=== PATIENT | male | born 1945 | race Caucasian/White ===

== ENCOUNTER 2016-10-06 09:39 | Inpatient (IN) ==
--- NOTE | 2016-10-05 08:46 | EKG Report ---
Test Performed on : 10/05/2016 08:35:56 AM Test Reason : PAT Blood Pressure : / mmHG Vent. Rate : 058 BPM Atrial Rate : 058 BPM P-R Int : 166 ms QRS Dur : 110 ms QT Int : 440 ms P-R-T Axes : 041 -06 017 degrees QTc Int : 431 ms Sinus bradycardia. Incomplete right bundle branch block Borderline ECG When compared with ECG of 12-MAR-2007 07:24, Incomplete right bundle branch block is now present Confirmed by Ron ARMANDO, Alejandro Gutierrez ([id number]) on 10/05/2016 6:52:08 PM
[2016-10-05 08:50] LABS: HEMOGLOBIN 16.1 g/dL (14.0-18.0); MCH 30.2 PG (27-31); MCHC 32.9 g/dL (33-37); MCV 91.9 FL (81-99); MPV 9.7 FL (7.4-10.4); RBC 5.33 XMIL (4.7-6.1)
[2016-10-05 09:05] LABS: CALCIUM 10.5 mg/dL (8.8-10.2); POTASSIUM 4.8 mmol/L (3.5-5.1)
[2016-10-05 09:08] LABS: ALBUMIN 4.1 g/dL (3.5-5.0); DIRECT BILIRUBIN 0.2 mg/dL (0.00-0.20); TOTAL BILIRUBIN 0.64 mg/dL (0.20-1.00); TOTAL PROTEIN 7.1 g/dL (6.3-8.3)
[2016-10-05 09:12] LABS: PROTIME 10.5 Seconds (9.2-11.7); PTT 25.9 Seconds (22.0-36.0)
[2016-10-06] MEDS ORDERED: PEPCID ONE (10:12)
[2016-10-06] MEDS ORDERED: LR 1,000 ML ONE ×3 (10:13→15:11)
[2016-10-06] MEDS ORDERED: REGLAN ONE (10:13)
[2016-10-06] MEDS ORDERED: KEFZOL 2 GM/D5W 50 ML ONE (10:13)
[2016-10-06] MEDS ORDERED: MARCAINE 0.25% PF/EPI 1:200,000 ONE (10:51)
[2016-10-06] MEDS ORDERED: SODIUM CHLORIDE 0.9% ONE (10:51)
[2016-10-06] MEDS ORDERED: FENTANYL ONE (11:10)
[2016-10-06] MEDS ORDERED: DIPRIVAN 1% ONE (11:10)
[2016-10-06] MEDS: DILAUDID ONE ×3 (14:14→14:41)
[2016-10-06] MEDS ORDERED: ZOFRAN ONE (14:17)
[2016-10-06] MEDS ORDERED: NORCURON ONE (14:17)
[2016-10-06] MEDS ORDERED: NEOSTIGMINE ONE (14:17)
[2016-10-06] MEDS ORDERED: LR 2,000 ML ONE (14:18)
[2016-10-06] MEDS ORDERED: ROBINUL ONE (14:18)
[2016-10-06] MEDS ORDERED: DECADRON ONE (14:18)
[2016-10-06] MEDS ORDERED: XYLOCAINE-MPF 2% ONE (14:18)
[2016-10-06] MEDS ORDERED: QUELICIN (DOSE) ONE (14:18)
[2016-10-06] MEDS ORDERED: DILAUDID PCA VIAL ONE (15:10)
[2016-10-06] MEDS ORDERED: OFIRMEV 1000 MG/ISOTONIC SOLN 100 ML ONE (15:10)
[2016-10-06] MEDS ORDERED: NARCAN IV PRN (15:42)
[2016-10-06] MEDS ORDERED: DILAUDID PCA VIAL IV PRN (15:42)
[2016-10-06] MEDS ORDERED: ZOFRAN IV PRN ×2 (15:42→15:47)
[2016-10-06] MEDS ORDERED: NARCAN 0.4 MG in LR 1,000 ML IV PRN (15:42)
[2016-10-06] MEDS: LR 1,000 ML IV SCH ×3 (15:45→22:19)
[2016-10-06] MEDS ORDERED: ULTRAM PO PRN (15:47)
--- NOTE | 2016-10-06 16:17 | OPERATIVE NOTE ---
PROCEDURE DATE: 10/06/2016 PREOPERATIVE DIAGNOSES: 1. Symptomatic cholelithiasis. 2. Umbilical hernia. POSTOPERATIVE DIAGNOSES: 1. Gallbladder adenocarcinoma. 2. Cholelithiasis. 3. Umbilical hernia. PROCEDURE PERFORMED: 1. Laparoscopic converted to open segment 5 liver lesion wedge resection. 2. Biopsy of posterior segment 5, junction of segment 4 liver lesion. 3. Biopsy of gallbladder. 4. Umbilical hernia repair. COMPLICATIONS: None. ESTIMATED BLOOD LOSS: 250 mL. DRAINS: Manny drain in the gallbladder fossa. OPERATIVE INDICATIONS: This 70-year-old male with a history of coronary artery disease presented with a several-week to month history of colicky right upper quadrant pain and nausea. Ultrasound obtained a week prior to surgery showed stones, but no evidence of cholecystitis , no evidence of masses. LFTs were mildly abnormal with elevation of alkaline phosphatase, but bilirubin was normal. Cholecystectomy was indicated. OPERATIVE FINDINGS: There were dense omental adhesions to the gallbladder fossa and the surrounding liver. It was very hemorrhagic. The gallbladder was firm. Upon opening, it was evident that there was a large tumor extending into segment 5 and segment 4 of the liver. The gallbladder was completely replaced with tumor. There were some stones within this, but for the most part the gallbladder was all tumor. This was closely adherent to the portal structures on the distal gallbladder. There was a small nodule in segment 2 of the liver and a small nodule in segment 8 of the liver; however, these were within the liver parenchyma and not visible, and not readily biopsiable. There was no evidence of peritoneal disease. OPERATIVE NOTE: Risks, benefits, and alternatives were discussed with the patient and he consented to the procedure. He was seen in the preoperative area and surgery to be performed was confirmed. He was taken to the operating room, placed in supine position, and general anesthesia was induced without complication. All bony prominences were padded. Preincisional antibiotics were administered. Abdomen was prepped with chlorhexidine solution after his hair was removed with clippers, draped in usual fashion. After time-out was performed between nursing, surgical, and anesthesia staff, periumbilical block was performed with local anesthetic. We then everted the skin overlying the umbilical hernia and dissected the hernia contents free, and excised this and entered the abdomen through the hernia defect. We placed a 12 mm Abimael trocar. This dissection did require significantly more effort than the usual entry into the abdomen laparoscopically. Placed the 12 mm Abimael trocar, insufflated the abdomen to 15 mmHg, and inspected the abdomen. There was no evidence of injury and there was no evidence of other abnormal pathology. At this point, we placed 3 other trocars, 1 in the epigastrium, 1 in the midclavicular line, 1 off the costal margin, and 1 more laterally after infiltration of the peritoneum. At this point, we realized the gallbladder was significantly inflamed and attempts to grasp it were difficult. This initially was felt to be secondary to impacted stones, given that it was very hard and very friable. Ultimately, we dissected down omental adhesions. It took greater than an hour to expose the gallbladder laparoscopically. We used a corkscrew retractor device to retract the gallbladder cephalad; however, it became apparent that the gallbladder was significantly abnormal, very hard, and dissection was difficult. Anatomy was significantly distorted. As such, at this point, we still felt this was related to severe chronic cholecystitis with impacted gallstones, as there was no obvious tumor noted at this time. So we converted to an open procedure, converting his 3 trocar sites to a subcostal incision, placed a Bookwalter retractor, and retracted and exposed the liver, pulling it out of the posterior recess. It then became evident that what was felt to be perigallbladder inflammation and adhesions was, in fact, tumor. We performed a wedge biopsy using electrocautery of the segment 5 lesion. We then attempted to perform a cholecystectomy, but it was evident that this was completely encased in tumor and upon palpation of the liver there was a large tumor extending intrahepatically in segment 4 of the liver. A small nodule was noted in segment 2, was not visible , but it felt firm, and there was another palpable nodule in segment 8 that was small and firm, but again not visible. We sent the segment 5 biopsy off for frozen section and confirmed adenocarcinoma here consistent with a gallbladder etiology, locally advanced. Given the locally advanced nature and the likelihood of requiring a formal right hepatectomy or trisegmentectomy to completely excise the gallbladder and associated tumor, we elected to abort this and formally stage the patient. We placed a Manny drain in the gallbladder fossa and obtained hemostasis, irrigated the abdomen, removed all our laps, and secured the drain with a 2-0 nylon suture. We closed the posterior fascia with a #1 PDS and the anterior fascia with a #1 PDS, irrigated the superficial wound, and closed the skin with clips. During the retraction of the gallbladder, we also placed a midline 5 mm trocar to help facilitate retraction. We closed the umbilical incision, the hernia defect, with interrupted 0 Vicryl sutures and closed the skin with 4-0 Monocryl here, applied a pressure dressing, gauze and Medipore tape dressing. Overall, he tolerated the procedure well. Discussed with the family the unexpected diagnosis. Will plan to admit him to my service tonight and stage him formally over the next couple of days or as an outpatient. All sponge, instrument, and needle counts were correct. MTDD
[2016-10-06] MEDS: PERIDEX MT SCH (20:28)
[2016-10-06] MEDS: ZYLOPRIM PO SCH (20:28)
[2016-10-06] MEDS: OFIRMEV 1000 MG/ISOTONIC SOLN 100 ML IV SCH (22:19)
[2016-10-07] MEDS: OFIRMEV 1000 MG/ISOTONIC SOLN 100 ML IV SCH ×6 (03:55→23:25)
[2016-10-07] MEDS: PRILOSEC PO SCH ×2 (03:55→06:47)
[2016-10-07] MEDS: LR 1,000 ML IV SCH ×3 (06:47→15:06)
[2016-10-07] MEDS: PERIDEX MT SCH ×2 (08:28→20:54)
[2016-10-07] MEDS: FLOMAX PO SCH (08:30)
[2016-10-07] MEDS: IMDUR PO SCH (08:30)
[2016-10-07] MEDS: ASPIRIN PO SCH (08:30)
[2016-10-07] MEDS: LIPITOR PO SCH (08:30)
[2016-10-07] MEDS: ZYLOPRIM PO SCH ×2 (08:30→20:54)
[2016-10-07] MEDS: TOPROL XL PO SCH (08:30)
[2016-10-07] MEDS: SINGULAIR PO SCH (08:30)
[2016-10-07] MEDS: FLONASE NAS SCH (08:30)
[2016-10-07 09:59] LABS: MANUAL DIFF NEEDED? NO
[2016-10-07 10:03] LABS: BASO% 0.1 % (0.0-0.8); HEMATOCRIT 43.7 % (42.0-52.0); HEMOGLOBIN 14.5 g/dL (14.0-18.0); IMM GRAN# 0.04 X1000 (0.0-0.04); IMM GRAN% 0.2 % (0.0-0.5); LYMPH# 2.19 X1000 (1.2-3.4); LYMPH% 11.6 % (20.5-51.1); MCH 30.6 PG (27-31); MCHC 33.2 g/dL (33-37); MCV 92.2 FL (81-99); MONO# 1.45 X1000 (0.11-0.59); MONO% 7.7 % (1.7-9.3); MPV 10.1 FL (7.4-10.4); NEUT% 80.4 % (42.2-75.2); PLT 257 X1000 (130-400); RBC 4.74 XMIL (4.7-6.1)
[2016-10-07 10:55] LABS: ALBUMIN 3.5 g/dL (3.5-5.0); CALCIUM 9.4 mg/dL (8.8-10.2); POTASSIUM 4.4 mmol/L (3.5-5.1); TOTAL BILIRUBIN 0.55 mg/dL (0.20-1.00); TOTAL PROTEIN 6.1 g/dL (6.3-8.3)
--- NOTE | 2016-10-07 13:24 | PROGRESS NOTE ---
DATE: 10/07/2016 SUBJECTIVE: He feels better. Pain has been reasonably controlled. No nausea. Some difficulty voiding overnight. Had an in-and-out cath, but it seems to be improved this morning. The postvoid residual is pretty low this morning. PHYSICAL EXAMINATION: No fevers. Heart rate 66, blood pressure 141/61, oxygen saturation 95% on room air. General: He is alert. There is no scleral icterus. Dressings clean, dry, and intact. ZACKERY drain serosanguineous. LABORATORY DATA: White count 18; expected postop white count. Hematocrit 43, platelets are 257. Creatinine is 1.3. LFTs mildly elevated. As expected, transaminases and alkaline phosphatase. ASSESSMENT AND PLAN: This is a 71-year-old male who presented for elective cholecystectomy for symptomatic stones and was found to have locally aggressive, invasive, and advanced gallbladder cancer. He has got a drain. We will gradually advance his diet today. Monitor him for ongoing urinary retention. We started Flomax. We will back his fluids down as he is tolerating clear liquids. Keep him out of bed today. Will start prophylactic Lovenox. Continue to monitor. Ultimately, and I discussed this with the patient, he will need staging CT scan to plan for potential further hepatic resection, but we will allow him to recover from this in the mean time.
[2016-10-07] MEDS: LOVENOX SUBQ SCH (16:18)
[2016-10-08] MEDS: OFIRMEV 1000 MG/ISOTONIC SOLN 100 ML IV SCH ×5 (03:37→22:28)
[2016-10-08] MEDS: LR 1,000 ML IV SCH (05:27)
[2016-10-08] MEDS: PRILOSEC PO SCH ×2 (05:35→07:52)
[2016-10-08] MEDS: PERIDEX MT SCH ×2 (10:00→20:12)
[2016-10-08] MEDS: LIPITOR PO SCH (10:01)
[2016-10-08] MEDS: IMDUR PO SCH (10:02)
[2016-10-08] MEDS: ZYLOPRIM PO SCH ×2 (10:03→20:11)
[2016-10-08] MEDS: SINGULAIR PO SCH (10:03)
[2016-10-08] MEDS: TOPROL XL PO SCH (10:04)
[2016-10-08] MEDS: ASPIRIN PO SCH (10:04)
[2016-10-08] MEDS: FLOMAX PO SCH (10:04)
[2016-10-08] MEDS: FLONASE NAS SCH (10:05)
[2016-10-08] MEDS: LOVENOX SUBQ SCH (12:54)
[2016-10-08] MEDS ORDERED: OXY IR PO PRN (13:11)
[2016-10-08] MEDS ORDERED: NEXIUM PO ONE (13:13)
--- NOTE | 2016-10-08 13:32 | PROGRESS NOTE ---
DATE: 10/08/2016 SUBJECTIVE: More pain today, but he is voiding without difficulty, tolerating a regular diet. He did require IV pain medicine overnight. OBJECTIVE: Vital Signs: Afebrile. No tachycardia. Blood pressure is normal. His oxygen saturation is 95% on room air. General: He is alert. Abdomen: ZACKERY drain serosanguineous and dressings were all clean, dry, and intact. LABORATORY DATA: Nothing new today. ASSESSMENT AND PLAN: A 71-year-old male who presented for laparoscopic cholecystectomy, converted to open, and found to have locally advanced gallbladder cancer. He is doing well. Pain control is his main issue right now. He is still requiring patient-controlled analgesia. He is having bowel function and tolerating a diet. We will work on his pain control today and work towards discharge in the next couple of days. cc: Gertrude Siddiqi MD
[2016-10-09] MEDS: PRILOSEC PO SCH (07:00)
[2016-10-09] MEDS: SINGULAIR PO SCH (09:00)
[2016-10-09] MEDS: FLOMAX PO SCH (09:00)
[2016-10-09] MEDS: ZYLOPRIM PO SCH ×2 (09:00→22:00)
[2016-10-09] MEDS: PERIDEX MT SCH ×2 (09:00→22:00)
[2016-10-09] MEDS: LOVENOX SUBQ SCH (09:00)
[2016-10-09] MEDS: NEXIUM PO SCH (09:00)
[2016-10-09] MEDS: TOPROL XL PO SCH (09:00)
[2016-10-09] MEDS: FLONASE NAS SCH (09:00)
[2016-10-09] MEDS: LIPITOR PO SCH (09:00)
[2016-10-09] MEDS: IMDUR PO SCH (09:10)
[2016-10-09] MEDS: ASPIRIN PO SCH (09:20)
[2016-10-09] MEDS: OFIRMEV 1000 MG/ISOTONIC SOLN 100 ML IV SCH ×3 (10:00→22:00)
--- NOTE | 2016-10-09 10:06 | PROGRESS NOTE ---
DATE: 10/09/2016 SUBJECTIVE: Patient doing okay. He is feeling bloated. He is tolerating a regular diet. OBJECTIVE: Vital Signs: Patient is currently afebrile. His vital signs have been stable. General: No acute distress. Cardiovascular: Regular rate and rhythm. Lungs: Grossly clear. Abdomen: Protuberant but soft. Incision healing well. ZACKERY drain in place with serosanguineous output. LABORATORY: None currently. ASSESSMENT AND PLAN: A 71-year-old male status post laparoscopic converted to open cholecystectomy with locally advanced gallbladder cancer. He is currently doing well. We will continue to monitor in the hospital and wait until his bloating improves and he has a significant return of bowel function. Hopefully, we will be able to get him discharged here in the next several days. cc: MD Gertrude Hillman MD
[2016-10-10] MEDS ORDERED: LR 1,000 ML IV SCH (02:02)
[2016-10-10] MEDS: PRILOSEC PO SCH (06:00)
[2016-10-10] MEDS: OFIRMEV 1000 MG/ISOTONIC SOLN 100 ML IV SCH (06:00)
--- NOTE | 2016-10-10 07:21 | PROGRESS NOTE ---
DATE: 10/10/2016 SUBJECTIVE: Patient doing well. He is tolerating his diet. He does not feel bloated this morning. OBJECTIVE: Vital Signs: Patient is currently afebrile. His vital signs have been stable. ZACKERY drain has 30 recorded of serosanguineous output. General Examination: No acute distress. Cardiovascular: Regular rate and rhythm. Lungs: Grossly clear. Abdomen: Protuberant but soft. Incision is healing well. ZACKERY in place with serosanguineous output. Appears to be more than what is recorded. Laboratory: None currently. ASSESSMENT AND PLAN: A 71-year-old, male status post laparoscopic converted to open cholecystectomy with locally advanced gallbladder cancer. He is currently doing well. We will stop all of his intravenous medications. His bloating seems to improve. We will watch him 1 more day and hopefully have him discharged in the morning. I will keep his Jesse-Martinez drain in place, given the color of the fluid but we will monitor him. It can likely be removed in the near future. cc: MD Gertrude Hillman MD
[2016-10-10] MEDS: NORCO-10 PO PRN ×3 (08:13→21:33)
[2016-10-10] MEDS: LIPITOR PO SCH (09:38)
[2016-10-10] MEDS: FLOMAX PO SCH (09:38)
[2016-10-10] MEDS: NEXIUM PO SCH (09:38)
[2016-10-10] MEDS: ASPIRIN PO SCH (09:39)
[2016-10-10] MEDS: ZYLOPRIM PO SCH ×2 (09:39→21:33)
[2016-10-10] MEDS: SINGULAIR PO SCH (09:39)
[2016-10-10] MEDS: IMDUR PO SCH (09:39)
[2016-10-10] MEDS: TOPROL XL PO SCH (09:39)
[2016-10-10] MEDS: PERIDEX MT SCH ×2 (09:40→21:33)
[2016-10-10] MEDS: LOVENOX SUBQ SCH (15:30)
[2016-10-10] MEDS: FLONASE NAS SCH (17:46)
[2016-10-11] MEDS: PRILOSEC PO SCH (06:26)
[2016-10-11] MEDS: NORCO-10 PO PRN ×2 (06:26→11:36)
[2016-10-11 08:15] VITALS: BP 160/70
[2016-10-11] MEDS: FLOMAX PO SCH (09:48)
[2016-10-11] MEDS: TOPROL XL PO SCH (09:48)
[2016-10-11] MEDS: LIPITOR PO SCH (09:48)
[2016-10-11] MEDS: ASPIRIN PO SCH (09:48)
[2016-10-11] MEDS: SINGULAIR PO SCH (09:48)
[2016-10-11] MEDS: PERIDEX MT SCH (09:48)
[2016-10-11] MEDS: IMDUR PO SCH (09:48)
[2016-10-11] MEDS: ZYLOPRIM PO SCH (09:48)
[2016-10-11] MEDS: NEXIUM PO SCH (09:48)
[2016-10-11] MEDS: FLONASE NAS SCH (09:49)
--- NOTE | 2016-10-12 00:14 | DISCHARGE SUMMARY ---
ADMISSION DATE: 10/06/2016 DISCHARGE DATE: 10/11/2016 SUBJECTIVE: He feels well this morning, tolerating a diet. He is voiding without difficulty, passing gas. Pain is controlled with oral medicines, and he is ambulating. HOSPITAL COURSE: This is a 71-year-old male, who presented with pain, and gallstones noted on ultrasound, for elective cholecystectomy. At the time of the cholecystectomy, there has been some inflammation, converted open to identify the anatomy, and he was found to have a large tumor within the gallbladder extending the liver. Biopsies confirmed adenocarcinoma. Given the extensive nature of the lesion, we elected to abort cholecystectomy to further stage the patient. He was admitted, pain control was an issue, but this was controlled with RESIDENTIAL COLLECTIONS and ultimately transitioned to oral medicines. He had some urinary retention that responded to in and out catheterization and Flomax, and was voiding without difficulty on the day of his discharge. His diet was ultimately advanced. Drain was removed, as it was just serosanguineous on the day of his discharge. On the morning, his incisions were all clean, dry, intact with kamini in place. ASSESSMENT: A 71-year-old male with incidentally noted gallbladder cancer, locally quite aggressive, with a large tumor burden around the gallbladder and liver. He is doing well. He has had return of bowel function. We plan to let him go home today. We will see him back in a week for staple removal, and arrange for CT scan for further staging of this, and evaluation and possible hepatic resection. We will also make a Medical Oncology referral at this time. I have discussed all this in detail with the patient. He has my contact information, and will call the office either or Tuesday to arrange the staple removal. DISCHARGE MEDICATIONS: He will continue taking his home medications. I gave him a prescription for Centrahoma, Zofran, Colace and MiraLAX. cc: Gertrude Siddiqi MD
== END 2016-10-11 12:27 | disposition home or self-care (01) ==
LOC: PAT 09:39 → OBSVTOIN 15:09 → 4N 15:09 → DIRADM 10-07 13:21 → 4N 10-07 13:27
PROVIDERS: ADMIT Surgery; ATTEND Surgery